=== PATIENT | female | born 1955 | race Two or more races ===

== ENCOUNTER 2019-01-13 08:59 | Day surgery (SDC) | payer MEDICAID ==
[~2019-01-13] VITALS: Ht 165.1 cm; Wt 84.4 kg
[2019-01-13] MEDS ORDERED: METO25TA6 MT (10:01)
[2019-01-13] MEDS ORDERED: MIDAZOLAM HCL 2 MG/2 ML VIAL ONE (10:07)
[2019-01-13] MEDS ORDERED: FENTANYL CITRATE/PF 50MCG/ML 2ML VIAL ONE (10:07)
[2019-01-13] MEDS ORDERED: IODIXANOL 320MG/ML 100 ML BOTTLE IV ONE (10:08)
[2019-01-13] MEDS ORDERED: LIDOCAINE HCL 1% 20ML VIAL (Pyxis) INJ ONE (10:08)
[2019-01-13 10:19] LABS: CHLORIDE 112 mEq/L (98-107)
[2019-01-13 10:22] LABS: BASOPHILS % 0.4 % (0.0-2.0); EOSINOPHILS % 0.5 % (0.0-5.0); HEMATOCRIT. 38.5 % (36.0-48.0); HEMOGLOBIN. 13.2 g/dL (12.0-16.0); LYMPHOCYTES % 55.1 % (20.0-50.0); MEAN CORPUSCULAR HEMOGLOBIN 29.9 pg (28.0-32.0); MEAN CORPUSCULAR VOLUME 87.5 fL (81.0-99.0); MEAN PLATELET VOLUME 8.9 fl (7.4-10.4); MONOCYTES % 5.7 % (2.0-8.0); NEUTROPHILS % 38.3 % (40.0-76.0); PLATELET 184 x1000/uL (130-400)
[2019-01-13 10:38] LABS: PARTIAL THROMBOPLASTIN TIME 25.4 sec (23.4-31.0); PROTHROMBIN TIME 10.5 sec (9.6-11.0)
[2019-01-13] MEDS ORDERED: ACETAMINOPHEN 325MG TABLET PO PRN (11:00)
[2019-01-13] MEDS ORDERED: ONDANSETRON HCL 4MG/2ML INJ IV PRN (11:00)
[2019-01-13] MEDS ORDERED: MORPHINE SULFATE 2 MG/ML CPJ (NOT FOR IM USE) IV PRN (11:00)
[2019-01-13] MEDS ORDERED: HEPARIN SODIUM 1,000 UNIT/1ML VIAL IV ONE (13:16)
[2019-01-13] MEDS ORDERED: NICARDIPINE 100MCG/ML 10ML VIAL (CATH LAB) IV ONE (13:16)
[2019-01-13] MEDS ORDERED: NITROGLYCERIN 50MCG/ML 10ML VIAL (CATH LAB) IV ONE (13:16)
== END 2019-01-13 14:00 | disposition home or self-care (01) ==
LOC: CCL 08:59
PROVIDERS: ATTEND Internal Medicine Cardiovascular Disease
DX: I25.10 Atherosclerotic heart disease of native coronary artery without angina pectoris (principal); I10 Essential (primary) hypertension; F41.9 Anxiety disorder, unspecified
CPT/HCPCS: 36415; 80048; 85025; 85610; 85730; 93005; 93458; C1769; C1887; J1644; J2250; J3010; J3490; J7050; Q9967